=== PATIENT | female | born 1995 | race Caucasian/White ===

== ENCOUNTER 2021-06-10 15:04 | Outpatient (REF) | payer OTHER, SELFPAY ==
[2021-06-10 15:25] LABS: Appearance Urine CLEAR; Color Urine YELLOW; Glucose Urine UA NEG (NEG); Leukocyte Esterase Urine 2+ (NEG); Nitrite Urine NEG (NEG); PH 6.5 (5.0-8.0); Specific Gravity - Urine 1.015 (1.005-1.025); Urine Blood NEG (NEG); Urine Ketones NEG (NEG); Urine Protein NEG (NEG-TRACE)
[2021-06-10 15:34] LABS: Bacteria Urine 2+ /LPF; RBC Urine 0 /HPF (0); Squamous Epithelial Cell Urine 1+ /LPF
== END 2021-06-10 15:05 | disposition home or self-care (01) ==
LOC: HO.LNP 15:04
PROVIDERS: PCP Nurse Practitioner Family; Visit Provider Internal Medicine Medical Oncology
DX: Z33.1 Pregnant state, incidental (principal)
CPT/HCPCS: 81001